=== PATIENT | male | born 1950 | race Caucasian/White ===

== ENCOUNTER 2018-05-02 08:04 | Outpatient (CLI) | payer OTHER | END 2018-05-02 12:22 | disposition home or self-care (01) | LOC: NUCLEAR 08:04 | DX: I20.9 Angina pectoris, unspecified (principal); I67.89 Other cerebrovascular disease | CPT/HCPCS: 93880; 78452; 93017; J0153; A9500 ==

== ENCOUNTER 2019-01-22 10:31 | Outpatient (CLI) | payer OTHER | END 2019-01-22 11:03 | disposition home or self-care (01) | LOC: LAB 10:31 | DX: J11.1 Influenza due to unidentified influenza virus with other respiratory manifestations (principal); J20.8 Acute bronchitis due to other specified organisms ==

== ENCOUNTER 2023-10-05 08:27 | Outpatient (CLI) | payer OTHER | END 2023-10-05 08:28 | disposition home or self-care (01) | LOC: NUCLEAR 08:27 | PROVIDERS: ATTEND Internal Medicine Sports Medicine | DX: I20.9 Angina pectoris, unspecified (principal) | CPT/HCPCS: 78452; 93017; A9500 ==